=== PATIENT | male | born 1985 | race Caucasian/White ===

== ENCOUNTER 2019-02-14 17:51 | Emergency (ER) | payer OTHER, SELFPAY ==
--- NOTE | 2019-02-14 17:58 | DI.RAD.S_ITS ---
PROCEDURE: XR CHEST 2V INDICATIONS: SOB eval for PNA TECHNIQUE: 2 views of the chest were acquired. COMPARISON: None. FINDINGS: Surgical changes and devices: None. Lungs and pleura: Lungs are clear. No pleural effusions or pneumothorax. Mediastinum: Mediastinal contours are normal. Heart size is normal. Bones and chest wall: No suspicious bony abnormalities. Soft tissues appear unremarkable. IMPRESSION: No acute cardiopulmonary findings. Dictated by: Desire Chavira M.D. on 02/14/2019 at 18:24 Approved by: Desire Chavira M.D. on 02/14/2019 at 18:24
[2019-02-14 18:26] VITALS: BP 132/74; PULSE 94; RESP 15; TEMP 37.2; O2SAT 99; BMI 40.1
[2019-02-14] MEDS: ALBUTEROL/IPRATROPIUM 3 ML AMPUL INH (18:36)
[2019-02-14 18:51] LABS: Influenza A - CEPHEID Flu A NEGATIVE (NEGATIVE); Influenza B - CEPHEID Flu B POSITIVE (NEGATIVE)
[2019-02-14 19:09] VITALS: PULSE 83; RESP 16; O2SAT 98
--- NOTE | 2019-02-14 19:11 | ED_ITS ---
HPI - URI/Sore Throat <NATANAEL AldridgeP - Last Filed: 02/14/19 21:27> General Chief Complaint: Upper Respiratory Symptoms Stated Complaint: COUGH TROUBLE BREATHING FEVER Time Seen by Provider: 02/14/19 17:57 Source: patient Mode of arrival: Ambulatory Limitations: no limitations History of Present Illness HPI Narrative: This is a 33-year-old male, current some day smoker, who presents to ED with 2 day duration of fever with T-max 102?, productive cough with wheezing and rattling in the chest, chest tightness. Patient reports he had in the past bronchitis and pneumonia but denies chronic respiratory disease such as asthma or COPD. Patient had received flu immunization for this season. Patient states mucous appears to be brown mixed with green phlegm. Patient states many of his coworkers I ill with cold symptoms. Patient denies chest pain, nausea, vomiting, diarrhea. Related Data Previous Rx's Medication Instructions Recorded albuterol sulfate 2 inhalation INHALATION Q4-6H PRN 02/14/19 #8.5 gram dextromethorphan-guaifenesin 1 tab PO Q12H #20 tab 02/14/19 [Mucinex DM] oseltamivir [Tamiflu] 75 mg PO Q12H 5 Days #9 cap 02/14/19 Allergies Allergy/AdvReac Type Severity Reaction Status Date / Time No Known Drug Allergies Allergy Verified 02/14/19 18:26 Review of Systems <Ron Sargent [employer] OPERATOR - Last Filed: 02/14/19 21:27> Review of Systems Narrative: General: Reports fever and chills. Denies Fatigue, malaise, sweats. HEENT: Denies sinus pain, ear pain, (+) sore throat, difficulty swallowing, dizziness. Respiratory: See HPI Cardiovascular: Denies chest pain, palpitations, orthopnea, edema. Gastrointestinal: Denies nausea, vomiting, abdominal pain, diarrhea, constipation, melena. : Denies dysuria, frequency, incontinence, hematuria, urinary retention. Musculoskeletal: Denies weakness, joint pain or bony pain. Skin: Denies rash, skin lesions, or other. Neurologic: Denies weakness, headache, numbness, change in speech, confusion, seizures, incoordination. Psychiatric: No concerning psychosocial issues. 12-point review of systems is negative except for those stated above. Patient History <Ron StevensonROSALES sidhu - Last Filed: 02/14/19 21:27> Medical History (Updated 02/14/19 @ 19:33 by ROSALES Aldridge) Bronchitis (Acute) Pneumonia (Acute) Surgical History (Updated 02/14/19 @ 19:23 by ROSALES Aldridge) H/O shoulder surgery (Acute) Social History Smoking Status: Current some day smoker Smoking Status: Current some day smoker alcohol intake frequency: holidays/special occasions only Substance Use Type: does not use Exam <Ron StevensonROSALES sidhu - Last Filed: 02/14/19 21:27> Narrative Exam Narrative: GEN: Alert, oriented x 3, well appearing and nourished, and in no acute distress. Head: Normal cephalic, atraumatic. No scalp or temporal tenderness, palpable mass or rash. EYES: Pupils are equal, round, and reactive to light and accommodation. Extraocular muscles are intact bilaterally. There is no subconjunctival hemorrhage, exudate and sclera non-icteric. ENT: Bilateral auditory canals and tympanic membranes clear. Hearing grossly intact. Nose without bleeding, purulent discharge or deviation. Facial sinuses nontender to palpate. Mucous membrane moist, no mucosal lesion. Throat without erythema, tonsillar hypertrophy or exudate. Uvula in midline, airway patent. Neck: Trachea in midline. No JVD, non-tender without lymphadenopathy. No masses or thyroid megaly. Supple, non-tender and no meningeal signs. CARDIAC: Normal regular rate and rhythm without murmurs, gallops, or rubs. No chest wall tenderness. No peripheral edema, cyanosis or pallor. Capillary refill is less than 2 seconds. RESPIRATORY: Lungs mild expiratory wheezes in bilateral upper and mid lobes to auscultate bilaterally. No productive cough to witness. No rales, or rhonchi. No stridor, respiratory distress, increase work of breathing, or accessary muscle used. ABD: Abdomen soft, nontender and non-distended. No guarding or rebound tenderness to palpate. Bowel sounds are normal in all 4 quadrants. There is no palpable masses or organomegaly. EXT: Full painless ROM of all extremities with no loss of sensation, strength, effusion or edema. SKIN: Warm, dry, normal color for patient. No erythema, lesions or rash over visible areas. BACK: Nontender without deformity or crepitance. No flank tenderness. NEUROLOGICAL: Alert and oriented to place, time and person. Sensation and motor function intact bilaterally. No facial droops, dysphasia. PSYCHIATRIC: Good judgement and reason, without hallucinations, abnormal affect or abnormal behaviors during the examination. Initial Vital Signs Initial Vital Signs: Vital Signs Temperature 98.9 F 02/14/19 18:26 Pulse Rate 94 H 02/14/19 18:26 Respiratory Rate 15 02/14/19 18:26 Blood Pressure 132/74 02/14/19 18:26 Pulse Oximetry 99 02/14/19 18:26 <Lamont Dhillon DO - Last Filed: 02/14/19 21:44> Initial Vital Signs Initial Vital Signs: Vital Signs Temperature 98.9 F 02/14/19 18:26 Pulse Rate 94 H 02/14/19 18:26 Respiratory Rate 15 02/14/19 18:26 Blood Pressure 132/74 02/14/19 18:26 Pulse Oximetry 99 02/14/19 18:26 Scores <ROSALES Aldridge - Last Filed: 02/14/19 21:27> GCS Hardy coma scale eye opening: Spontaneous Hardy coma scale verbal response: Orientated Cuco coma scale motor response: Obey commands Hardy coma scale total score: 15 Course <ROSALES Aldridge - Last Filed: 02/14/19 21:27> Orders Ordered: ED Orders 02/14/19 17:58 XR chest 2V Stat 02/14/19 18:22 Influenza A & B (PCR) Stat Discontinued Medications Albuterol (Ventolin) 2.5 mg INH NOW ONE Stop: 02/14/19 19:17 Last Admin: 02/14/19 19:27 Dose: 2.5 mg Documented by: REGIS Albuterol/Ipratropium (Duoneb) 3 ml INH NOW ONE Stop: 02/14/19 18:29 Last Admin: 02/14/19 18:36 Dose: 3 ml Documented by: HIWOT Oseltamivir Phosphate (Tamiflu) 75 mg PO NOW ONE Stop: 02/14/19 19:17 Last Admin: 02/14/19 19:40 Dose: 75 mg Documented by: DAVID Vital Signs Vital signs: Vital Signs - 8 hr 02/14/19 18:26 02/14/19 19:09 02/14/19 19:28 Temperature 98.9 F Pulse Rate 94 H 83 89 Respiratory Rate 15 16 16 Blood Pressure 132/74 Pulse Oximetry 99 98 95 02/14/19 19:40 Temperature Pulse Rate 89 Respiratory Rate Blood Pressure 130/64 Pulse Oximetry 94 <Lamont Dhillon DO - Last Filed: 02/14/19 21:44> Orders Ordered: ED Orders 02/14/19 17:58 XR chest 2V Stat 02/14/19 18:22 Influenza A & B (PCR) Stat Discontinued Medications Albuterol (Ventolin) 2.5 mg INH NOW ONE Stop: 02/14/19 19:17 Last Admin: 02/14/19 19:27 Dose: 2.5 mg Documented by: REGIS Albuterol/Ipratropium (Duoneb) 3 ml INH NOW ONE Stop: 02/14/19 18:29 Last Admin: 02/14/19 18:36 Dose: 3 ml Documented by: HIWOT Oseltamivir Phosphate (Tamiflu) 75 mg PO NOW ONE Stop: 02/14/19 19:17 Last Admin: 02/14/19 19:40 Dose: 75 mg Documented by: DAVID Vital Signs Vital signs: Vital Signs - 8 hr 02/14/19 18:26 02/14/19 19:09 02/14/19 19:28 Temperature 98.9 F Pulse Rate 94 H 83 89 Respiratory Rate 15 16 16 Blood Pressure 132/74 Pulse Oximetry 99 98 95 02/14/19 19:40 Temperature Pulse Rate 89 Respiratory Rate Blood Pressure 130/64 Pulse Oximetry 94 MDM - URI/Sore Throat <ROSALES Aldridge - Last Filed: 02/14/19 21:27> Differential Diagnosis Differential diagnosis: Likely upper respiratory infection, bronchitis, influenza and other (Pneumonia) Medical Records Attestation: I reviewed the patient's medical records. Lab Data Attestation: I reviewed the patient's lab results. Labs: Lab Results 02/14/19 Range/Units 18:22 Influenza A (RT-PCR) Flu a negative (NEGATIVE) Influenza B (RT-PCR) Flu b positive H (NEGATIVE) Imaging Data Chest x-ray: Radiologist's Impression: [address] [address] XRay Report Signed Patient: Rm Marshall [facility]#: [id number] : 1985Acct:[id number] Age/Sex: 33 / MDate of Service: 02/14/19 Loc: ED Accession Number: [id number] Procedure: XR chest 2V Ordering Provider: Lamont Dhillon D.O. PROCEDURE: XR CHEST 2V INDICATIONS: SOB eval for PNA TECHNIQUE: 2 views of the chest were acquired. COMPARISON: None. FINDINGS: Surgical changes and devices: None. Lungs and pleura: Lungs are clear. No pleural effusions or pneumothorax. Mediastinum: Mediastinal contours are normal. Heart size is normal. Bones and chest wall: No suspicious bony abnormalities. Soft tissues appear unremarkable. IMPRESSION: No acute cardiopulmonary findings. Dictated by: Desire Chavira M.D. on 02/14/2019 at 18:24 Approved by: Desire Chavira M.D. on 02/14/2019 at 18:24 MDM Narrative Medical decision making narrative: This is a 33-year-old male who presents to ED with productive cough, fever, wheezing, chest tightness which started about 2 days ago. Patient does have ill contact from coworkers. Patient does not have chronic pulmonary disease. Lung sounds were mild expiratory wheezes in bilateral lobes, without tachypnea or increased work of breathing. Chest x-ray was negative for acute findings. Flu swab was positive for B. patient received 2 nebulizer treatment while in ED which improved his symptoms. Patient's O2 sat in ED ranging from 94-98% in room air and afebrile. Patient elected to take Tamiflu and 1st dose has been provided while in ED. patient advised to continue with supportive care, increase hydration and rest and good hand hygiene to prevent transmitting flu to others. Patient discharged to home with albuterol inhaler, Tamiflu, and Mucinex DM and return precautions were discussed. Patient verbalized understanding and agrees with the treatment plan. <Lamont Dhillon DO - Last Filed: 02/14/19 21:44> Lab Data Labs: Lab Results 02/14/19 Range/Units 18:22 Influenza A (RT-PCR) Flu a negative (NEGATIVE) Influenza B (RT-PCR) Flu b positive H (NEGATIVE) Discharge Plan Departure Patient Disposition: Home Clinical Impression: Influenza Discharge Date/Time: 02/14/19 19:41 Instructions: DI for Influenza -- Adult Activity Restrictions/Additional Instructions: You have been diagnosed with [influenza positive for B, reactive airway disease. Your chest x-ray today was no indication of pneumonia. You were treated with albuterol and DuoNeb this treatment while in ED and 1st dose of Tamiflu.]. What to do: *Take your medications as directed. Please take Tamiflu twice a day next 5 days. Please take [id number] Tylenol and Motrin for discomfort and fever. Tylenol up to 4000 mg in 24 hour period. Motrin/ibuprofen 600-800 mg 3 times a day with food. Please increase oral hydration and rest. Good hand hygiene will help prevent transmitting flu B to others. Use albuterol inhaler 2 puffs every 4-6 hours for frequent coughing, wheezing, chest tightness. Please take Mucinex DM twice a day for congestion and productive cough. The prescription has been transmitted to [facility] in [place]. *Follow up with your primary care provider in 2-3 days, call for an appointment. Let them know you were seen in the ED and that we asked you to be seen in follow up. *Return to ED if you have any new, worsening, or concerning symptoms, such as [fever not controlled with the medication, chest pain, breathing difficulty, unable to tolerate fluids, or any acute concerns]. Prescriptions: New albuterol sulfate 90 mcg/actuation HFA aerosol inhaler 2 inhalation INHALATION Q4-6H PRN (Reason: cough, wheezing) Qty: 8.5 RF: 0 oseltamivir [Tamiflu] 75 mg capsule 75 mg PO Q12H 5 Days Qty: 9 RF: 0 dextromethorphan-guaifenesin [Mucinex DM] 60-1,200 mg tablet extended release 12 hr 1 tab PO Q12H Qty: 20 RF: 0 Referrals: [facility] [Outside] <Lamont Dhillon, - Last Filed: 02/14/19 21:44> Sign Out Provider Sign Out Attestation: Dr Dhillon Co-Sign Statement: I was available for consultation during this patient's emergency department visit. This chart is signed by myself for administrative purposes only. I did not have direct contact with this patient during this visit. They were seen independently by the APC.
[2019-02-14] MEDS: ALBUTEROL 2.5 MG/3 ML NEB (ADULT) INH (19:27)
[2019-02-14 19:28] VITALS: PULSE 89; RESP 16; O2SAT 95
[2019-02-14 19:40] VITALS: BP 130/64; PULSE 89; O2SAT 94
[2019-02-14] MEDS: OSELTAMIVIR 75 MG CAPSULE PO (19:40)
== END 2019-02-14 19:41 | disposition home or self-care (01) ==
PROVIDERS: Emergency Medicine; Emergency Provider Nurse Practitioner Family
DX: J11.1 Influenza due to unidentified influenza virus with other respiratory manifestations (principal)
CPT/HCPCS: 71046; 87502; 94640; 99283; 99284; J7613

== ENCOUNTER 2019-04-05 23:28 | Emergency (ER) | payer OTHER, SELFPAY ==
[2019-04-05 23:35] VITALS: BP 138/69; PULSE 92; RESP 16; TEMP 36.9; O2SAT 97; BMI 40.3
--- NOTE | 2019-04-05 23:40 | ED_ITS ---
HPI - URI/Sore Throat General Chief Complaint: Upper Respiratory Symptoms Stated Complaint: white spots inside mouth/throat sore Time Seen by Provider: 04/05/19 23:32 Source: patient Mode of arrival: Ambulatory Limitations: no limitations History of Present Illness HPI Narrative: This is a 33-year-old who comes in with complaint of pain/sore throat. Patient states more on the right than the left. He feels like his tonsil is swollen. He states he noticed white spots on the back of his tonsils and more as the day went by. Tried 800 mg of ibuprofen earlier today followed by 2nd dose this evening with minimal to moderate improvement. No fevers that patient is aware of. No ear pain. No runny nose. Patient states he has a mild cough but attributes this to quitting smoking. It is nonproductive. No hoars eness or change in voice. He denies any chest pain, shortness of breath, no nausea vomiting other GI or urinary symptoms. He has had no rashes or skin changes. He denies any other medical problems, no known drug allergies. Related Data Previous Rx's Medication Instructions Recorded albuterol sulfate 2 inhalation INHALATION Q4-6H PRN 02/14/19 #8.5 gram dextromethorphan-guaifenesin 1 tab PO Q12H #20 tab 02/14/19 [Mucinex DM] amoxicillin 500 mg PO TID #30 tab 04/06/19 Allergies Allergy/AdvReac Type Severity Reaction Status Date / Time No Known Drug Allergies Allergy Verified 02/14/19 18:26 Review of Systems Review of Systems ROS Unobtainable: All systems reviewed & are unremarkable except as noted in HPI and below Patient History Medical History Bronchitis (Acute) Pneumonia (Acute) Surgical History H/O shoulder surgery (Acute) Social History Smoking Status: Current some day smoker Smoking Status: Current some day smoker alcohol intake frequency: holidays/special occasions only Substance Use Type: does not use Exam Narrative Exam Narrative: GEN: well nourished, well appearing male, alert and oriented x 3, patient appears to be in mild distress. HEENT: Atraumatic, pupils are equal round reactive to light, extraocular movements are intact, patient has some mild periorbital ecchymosis on the right eye which she states is from an old injury ?from the running into a pole?, nares are clear, TMs are clear with no fluid. Throat is is mildly erythematous bilaterally, no tonsillar enlargement appreciated, uvula is midline. Patient has small amount of white spot on his right tonsil but this may also just be thick saliva. No lymphadenopathy bilaterally HEART: Regular rate and rhythm without murmur, clicks, rubs. LUNGS:Lungs clear to auscultation, no wheezes, rales, crackles, chest moves symmetrically ABD:bowel sounds normal, soft, non-tender, no guarding, rebound, rigidity, no masses noted, no hepatosplenomegaly MSCL: Non-tender, no muscle atrophy, muscles strength 5/5 upper and lower extremities, full range of motion, normal gait NEURO:CN 2-12 intact, sensation normal SKIN: no rash or erythema. No petechiae. Initial Vital Signs Initial Vital Signs: Vital Signs Temperature 98.5 F 04/05/19 23:35 Pulse Rate 92 H 04/05/19 23:35 Respiratory Rate 16 04/05/19 23:35 Blood Pressure 138/69 04/05/19 23:35 Pulse Oximetry 97 04/05/19 23:35 Course Orders Ordered: Discontinued Medications Amoxicillin ( Trimox 250mg Prepack) 1 bottle [facility] ONE Stop: 04/06/19 00:06 Last Admin: 04/06/19 00:14 Dose: 1 bottle Documented by: ROCKY Vital Signs Vital signs: Vital Signs - 8 hr 04/05/19 23:35 04/06/19 00:00 Temperature 98.5 F Pulse Rate 92 H 76 Respiratory Rate 16 16 Blood Pressure 138/69 Blood Pressure [Left Arm] 120/68 Pulse Oximetry 97 97 MDM - URI/Sore Throat Lab Data Labs: Point of Care Testing Rapid Strep A Positive MDM Narrative Medical decision making narrative: rapid strep is positive. Patient started on amoxicillin. Return precautions given. Discharge Plan Departure Patient Disposition: Home Clinical Impression: Pharyngitis Qualifiers: Pharyngitis/tonsillitis etiology: streptococcus Qualified Code(s): J02.0 - Streptococcal pharyngitis Discharge Date/Time: 04/06/19 00:19 Instructions: DI for Pharyngitis/Tonsillopharyngitis -- Adult Activity Restrictions/Additional Instructions: Continue tylenol and or ibuprofen as needed for pain. Take antibiotics until completely gone. Your prescription was sent to [facility] in [place]. Return to ER for fevers greater than 100.4F, increasing swelling of your throat, stridor high-pitched wheezing, muffled voice, inability to swallow saliva or secretions or liquids, lightheadedness, passing out, persistent vomiting, swelling of the face or other new or concerning symptoms Prescriptions: New amoxicillin 500 mg tablet 500 mg PO TID Qty: 30 RF: 0 No Action albuterol sulfate 90 mcg/actuation HFA aerosol inhaler 2 inhalation INHALATION Q4-6H PRN (Reason: cough, wheezing) Qty: 8.5 RF: 0 dextromethorphan-guaifenesin [Mucinex DM] 60-1,200 mg tablet extended release 12 hr 1 tab PO Q12H Qty: 20 RF: 0
[2019-04-06] VITALS: BP 120/68; PULSE 76; RESP 16; O2SAT 97
[2019-04-06] MEDS: AMOXICILLIN 250 MG PREPACK 1 BOTTLE MISC (00:14)
== END 2019-04-06 00:19 | disposition home or self-care (01) ==
PROVIDERS: Emergency Provider Emergency Medicine
DX: J02.0 Streptococcal pharyngitis (principal)
CPT/HCPCS: 87880; 99282; 99283

== ENCOUNTER → 2020-10-13 13:00 | Outpatient (CLI) | payer OTHER, SELFPAY ==
--- NOTE | 2020-10-13 13:02 | DI.MRI.S_ITS ---
PROCEDURE: MR SHOULDER LT WO CON INDICATIONS: INSTABILITY OF LEFT SHOULDER TECHNIQUE: Noncontrast oblique coronal T2 fast spin echo with fat saturation, oblique sagittal T1 spin echo and T2 fast spin echo with fat saturation, axial T1 spin echo and T2 fast spin echo with fat saturation through the shoulder. COMPARISON: [facility], CR, XR SHOULDER 2+ VIEWS LEFT, 06/10/2020, 7:49. FINDINGS: Image quality: Excellent. Rotator cuff: Tendinosis and very low-grade articular surface partial-thickness tear involving distal supraspinatus at its insertion on the humeral head is seen. Distal infraspinatus tendon is intact. Distal subscapularis tendon is intact. No full-thickness rotator cuff tendon rupture. Sagittal images demonstrate no significant muscle atrophy. Bones and bursae: No acute fracture or dislocation. Chronic appearing Hill-Sachs deformity involving left humeral head is seen. No corresponding Bankart fracture. Subcortical cystic changes are noted involving inferior glenoid mild to moderate glenohumeral joint osteoarthritic changes are seen. Moderate acromioclavicular joint osteoarthritic changes also noted. No significant joint effusion or subacromial subdeltoid bursal fluid. Capsule and soft tissues: There is signal abnormality and contour irregularity involving anterior inferior labrum extending from 4-6 o'clock position. The glenohumeral ligaments are intact. The long head of the biceps tendon demonstrates normal location and morphology. The rotator interval appears normal, without fibrosis. The coracohumeral ligament is normal in thickness. IMPRESSION: 1. 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 Multiple subcortical cyst formation seen in inferior glenoid. Chronic appearing Hill-Sachs deformity. 2. Tendinosis and very low-grade articular surface partial-thickness tear involving distal supraspinatus at its insertion on the humeral head. No full-thickness rotator cuff tendon rupture. 3. Suggestion of extensive anterior-inferior labral tear at 4 to 6 o'clock position. Dictated by: Chadwick Valente M.D. on 10/13/2020 at 15:17 Approved by: Chadwick Valente M.D. on 10/13/2020 at 15:21
== END ==
PROVIDERS: PCP Physician Assistant Surgical; Referring Provider Physician Assistant Surgical; Visit Provider Physician Assistant Surgical
DX: M25.312 Other instability, left shoulder (principal); M67.912 Unspecified disorder of synovium and tendon, left shoulder; M19.012 Primary osteoarthritis, left shoulder; M75.112 Incomplete rotator cuff tear or rupture of left shoulder, not specified as traumatic
CPT/HCPCS: 73221

== ENCOUNTER → 2022-10-22 12:29 | Outpatient (CLI) | payer OTHER, SELFPAY ==
--- NOTE | 2022-10-22 | DI.MRI.S_ITS ---
PROCEDURE: MR HEAD/BRAIN WO CON INDICATIONS: Unspecified convulsions TECHNIQUE: Noncontrast axial T1 spin echo, axial T2 fast spin echo, sagittal and axial FLAIR, coronal T2 fast spin echo, axial gradient echo, axial diffusion and ADC through the brain. COMPARISON: None. FINDINGS: Image quality: Excellent. CSF Spaces: Basal cisterns are patent. No extra-axial fluid collections. Ventricles are normal in size and shape. Brain: No intracranial masses or hemorrhage. There are a few nonspecific foci of T2/FLAIR signal abnormality within the white matter, most pronounced within the left frontal lobe. Lyle/white matter interface is normal. Brainstem appears normal. Diffusion-weighted images demonstrate no acute ischemic insult. No chronic ischemic insults. Normal intravascular flow voids are present. Skull and face: Calvarium has normal marrow signal. Orbits appear normal. Sinuses: Sinuses and mastoids are clear. IMPRESSION: 1. No cause for patient's symptoms is identified. 2. There are a few nonspecific foci of T2/FLAIR signal abnormality within the white matter, most pronounced within the left frontal lobe. These may represent early small vessel disease. These do not have the typical appearance for demyelinating disease. 3. No acute intracranial abnormalities. Dictated by: Brandon Cline M.D. on 10/23/2022 at 8:40 Approved by: Brandon Cline M.D. on 10/23/2022 at 8:43
== END ==
PROVIDERS: PCP Physician Assistant Surgical
DX: R56.9 Unspecified convulsions (principal)
CPT/HCPCS: 70551

== ENCOUNTER → 2023-07-05 15:15 | Outpatient (CLI) | payer OTHER, SELFPAY ==
--- NOTE | 2023-07-05 | DI.US.S_ITS ---
PROCEDURE: US ABDOMEN LIMITED INDICATIONS: HEPATOMEGALY AND LIVER PARENCHYMAL CHANGES TECHNIQUE: Real-time scanning was performed of the abdominal and retroperitoneal organs, with image documentation. COMPARISON: None. FINDINGS: Liver: Liver is mildly enlarged measuring 17.5 centimeters. Liver is increased in echogenicity. Focal fatty sparing adjacent to the gallbladder. Gallbladder: Mobile gallstones are present. No wall thickening. No pericholecystic edema. Negative sonographic Esteves's sign. Biliary ducts: Intrahepatic bile ducts are non-dilated. Extrahepatic bile duct caliber measures 3.6 mm. Normal is 6-7 mm or less in diameter, or 10 mm or less post-cholecystectomy. Pancreas: Not well seen secondary to overlying bowel gas. Miscellaneous: No free abdominal fluid. IMPRESSION: 1. Mild hepatomegaly and pronounced hepatic steatosis. 2. Cholelithiasis without evidence of acute cholecystitis. Dictated by: Brandon Cline M.D. on 07/05/2023 at 16:58 Approved by: Brandon Cline M.D. on 07/05/2023 at 16:59
== END ==
PROVIDERS: Referring Provider Internal Medicine; Visit Provider Internal Medicine
DX: K80.20 Calculus of gallbladder without cholecystitis without obstruction (principal); K76.0 Fatty (change of) liver, not elsewhere classified
CPT/HCPCS: 76705

== ENCOUNTER → 2023-07-25 16:21 | Outpatient (CLI) | payer OTHER, SELFPAY ==
--- NOTE | 2023-07-25 16:22 | DI.MRI.S_ITS ---
PROCEDURE: MR BRAIN (PITUITARY) WWO CON INDICATIONS: Disorder of pituitary gland, unspecified TECHNIQUE: Noncontrast sagittal and axial FLAIR, axial gradient echo, axial diffusion and ADC through the brain. Thin-slice sagittal and coronal T1 spin echo, coronal T2 fast spin echo through the pituitary. After the administration contrast, optional dynamic coronal T1 spin echo, thin-slice coronal and sagittal T1 spin echo images through the pituitary fossa; axial and coronal and sagittal T1 spin echo with fat saturation through the brain. COMPARISON: [facility], MR, MR HEAD/BRAIN WO CON, 10/22/2022, 12:59. FINDINGS: Image quality: Excellent. Pituitary Gland: The pituitary gland demonstrates normal signal and bulk. T2 hyperintense pituitary cysts are seen posteriorly, as on series 12, image 8, measuring 5 x 4 mm and on series 12, image 7, measuring 4 x 3 mm. On the postcontrast imaging, no masses or additional abnormally enhancing areas are seen. The pituitary stalk and infundibulum have an unremarkable appearance. A normal appearing pituitary bright spot is seen posteriorly on the precontrast sagittal T1-weighted images. The optic chiasm and the ventral forebrain have an unremarkable appearance. CSF Spaces: Ventricles are normal in size and shape. Basal cisterns are patent. No extra-axial fluid collections. Brain: A few tiny foci of nonenhancing T2 weighted hyperintensity are again seen within the deep white matter of the left frontal lobe. No intracranial bleeds or mass effects. No abnormal intracranial enhancement. Lyle-white matter interface is intact. Diffusion weighted images demonstrate no acute ischemic insults. Brainstem is normal. Normal intravascular flow voids are present. Skull and face: Calvarial marrow is normal in signal. Orbits appear normal. Sinuses: Sinuses and mastoids are clear. IMPRESSION: No significant pituitary abnormality is seen. 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 A few foci of nonenhancing T2 weighted hyperintensity can again be seen within the deep white matter of the left frontal lobe. Dictated by: Gautam Gonzalez M.D. on 07/25/2023 at 16:39 Approved by: Gautam Gonzalez M.D. on 07/25/2023 at 16:43
== END ==
LOC: MRI 16:21
PROVIDERS: Referring Provider Internal Medicine; Visit Provider Internal Medicine
DX: E23.6 Other disorders of pituitary gland (principal)
CPT/HCPCS: 70553; A9579

== ENCOUNTER → 2024-07-23 13:51 | Outpatient (CLI) | payer OTHER, SELFPAY ==
--- NOTE | 2024-07-23 13:54 | DI.ECHO.S_ITS ---
[facility] : : [address] : : [place] : : [id number] : : Phone: [phone] Echocardiogram Report + + :Name: GLENDA HOUSER Study Date: 07/23/2024 Height: 62 in : :[facility] ReadingLocation: Weight: 255 lb : : Gender: Male BSA: 2.1 m2 : :: 1985 Age: 38 yrs BP: 131/66 mmHg: :Reason For Study: Heart Palpitations : :Ordering Physician: GOLDY, : :ANNY Performed By: Mikey Jiménez : :Referring: ANNY WINSLOW : + + Interpretation Summary 1. The left ventricular contractility is normal. Estimated ejection fraction is greater than 60% with no segmental wall motion abnormalities. Mild concentric LVH. Normal diastolic function. 2. The right ventricle contractility is normal. 3. All cardiac chambers are of normal size. 4. No significant valvular abnormalities. 5. No obvious intracardiac shunts. 6. No obvious intracardiac masses nor thrombi. 7. No hemodynamically significant pericardial effusion. 8. Low right-sided filling pressures. Conclusion: Normal biventricular function with no significant valvular abnormalities with mild concentric left ventricular hypertrophy. Procedure: A two-dimensional transthoracic echocardiogram with color flow and Doppler was performed. The study quality was technically adequate. There is no prior echocardiogram noted for this patient. The patient was in normal sinus rhythm during the exam. Left Ventricle: The left ventricle is normal in size. Left ventricular wall thickness is mildly increased. Left ventricular systolic function is normal. The ejection fraction is estimated to be 60-65%. There are no focal wall motion abnormalities. Diastolic parameters suggest probable normal left ventricular diastolic function and normal filling pressures. Right Ventricle: The right ventricle is normal in size and function. Atria: The left atrial size is normal. Right atrial size is normal. There is no Doppler evidence for an interatrial shunt. Mitral Valve: The mitral valve leaflets appear normal. There is no evidence of stenosis, fluttering, or prolapse. There is trace mitral regurgitation. Aortic Valve: The aortic valve is trileaflet. The aortic valve opens well. There is no aortic valve stenosis. No aortic regurgitation is present. Tricuspid Valve: The tricuspid valve leaflets are thin and pliable. There is trace tricuspid regurgitation. The right ventricular systolic pressure is estimated to be at least 21 mmHg based on an estimated right atrial pressure of 3 mm Hg. Pulmonic Valve: The pulmonic valve is not well seen, but is grossly normal. There is a trace or physiologic amount of pulmonic regurgitation. Great Vessels: The aortic root is normal size. The ascending aorta is normal in size. The aortic arch could not be visualized. The IVC is of normal diameter and collapses greater than 50% with a sniff. This suggests a low right atrial pressure of 3 mm Hg. Pericardium/ Pleura There is no pericardial effusion. MMode/2D Measurements & Calculations LVIDd: 4.9 cm LVOT diam: 2.4 cm LVIDs: 3.3 cm Ao root diam: 3.0 cm FS: 33.5 % asc Aorta Diam: 3.2 cm IVSd: 1.2 cm LVPWd: 1.2 cm LV garcia. diameter/BSA (cm/m^2): 2.3 LV sys. diameter/BSA (cm/m^2): 1.5 LA A2 area: 17.5 cm2 RA long axis: 5.0 cm LA A4 area: 18.7 cm2 RA area: 17.5 cm2 LA length (vol): 5.6 cm RA vol: 52.1 ml LA vol: 49.7 ml RA : 24.6 ml/m2 LA vol index: 23.4 ml/m2 IVC diam: 1.9 cm TAPSE: 2.4 cm Doppler Measurements & Calculations Ao V2 max: 109.4 cm/sec LVOT Max Stanton: 106.8 cm/sec Ao V2 mean: 72.5 cm/sec LV V1 max P.6 mmHg Ao max P.8 mmHg LV V1 VTI: 20.3 cm Ao mean P.5 mmHg THAO(I,D): 4.7 cm2 Ao V2 VTI: 20.3 cm THAO(V,D): 4.5 cm2 sev ratio: 1.0 THAO indexed to BSA (cm^2/m^2): 2.2 MV E max stanton: 79.6 cm/sec TR max stanton: 210.1 cm/sec MV A max stanton: 53.9 cm/sec TR max P.7 mmHg MV E/A: 1.5 PA V2 max: 88.0 cm/sec Med Peak E' Stanton: 10.5 cm/sec PA V2 mean: 61.0 cm/sec E/E' med: 7.6 PA mean P.7 mmHg Lat Peak E' Stanton: 10.8 cm/sec PA pr(Accel): 12.2 mmHg E/E' lat: 7.4 E/e' average: 7.5 MV dec time: 0.23 sec SV(LVOT): 94.8 ml Reading Physician:SHERRY
== END ==
PROVIDERS: Referring Provider Orthopaedic Surgery; Visit Provider Orthopaedic Surgery
DX: R00.2 Palpitations (principal)
CPT/HCPCS: 93306